=== PATIENT | female | born 1940 | race Caucasian/White ===

== ENCOUNTER → 2020-06-17 11:32 | Outpatient (REF) | payer MEDICARE, OTHER, SELFPAY | LOC: ANHLAB 11:32 | PROVIDERS: PCP Internal Medicine; Visit Provider Nurse Practitioner | DX: C44.321 Squamous cell carcinoma of skin of nose (principal) | CPT/HCPCS: 88305 ==

== ENCOUNTER → 2020-07-21 10:04 | Outpatient (REF) | payer MEDICARE, OTHER, SELFPAY | LOC: ANHLAB 10:04 | PROVIDERS: PCP Internal Medicine; Visit Provider Nurse Practitioner | DX: C44.321 Squamous cell carcinoma of skin of nose (principal) | CPT/HCPCS: 88305; 88331 ==

== ENCOUNTER → 2021-06-30 13:25 | Outpatient (REF) | payer MEDICARE, SELFPAY | LOC: ANHLAB 13:25 | PROVIDERS: PCP Internal Medicine; Visit Provider Nurse Practitioner | DX: C44.722 Squamous cell carcinoma of skin of right lower limb, including hip (principal); C44.321 Squamous cell carcinoma of skin of nose | CPT/HCPCS: 88305 ==

== ENCOUNTER → 2021-09-07 08:32 | Outpatient (REF) | payer MEDICARE, SELFPAY | LOC: ANHLAB 08:32 | PROVIDERS: PCP Internal Medicine; Visit Provider Nurse Practitioner | DX: C44.722 Squamous cell carcinoma of skin of right lower limb, including hip (principal); C44.321 Squamous cell carcinoma of skin of nose | CPT/HCPCS: 88305; 88331 ==